=== PATIENT | male | born 1995 | race Hispanic/Latino ===

== ENCOUNTER 2017-09-15 16:23 | Emergency (ER) | payer OTHER ==
[2017-09-15 16:23] VITALS: BMI 53.8
[2017-09-15 16:32] VITALS: RESP 18; O2SAT 100
[2017-09-15] MEDS ORDERED: Sodium Chloride 0.9% 1,000 ML IV ONE (17:43)
[2017-09-15] MEDS ORDERED: Sodium Chloride 0.9% 1,000 ML ONE (17:48)
[2017-09-15 18:16] LABS: BASO % 0.3 % (0.0-2.0); EOS % 0.3 % (0.0-4.0); HEMATOCRIT 50.4 % (35.0-51.0); LYMPH # 0.8 K/uL (1.0-4.3); LYMPH % 8.9 % (20.0-40.0); MEAN CELL VOLUME 78.5 fL (80.0-94.0); MEAN CORPUSCULAR HEMOGLOBIN 25.2 pg (27.0-31.0); MEAN CORPUSCULAR HGB CONC 32.1 g/dL (33.0-37.0); MONO # 0.7 K/uL (0.0-0.8); MONO % 8.2 % (0.0-10.0); NRBC % 0.1 % (0.0-2.0); PLATELET COUNT 174 K/uL (130-400); RED CELL DISTRIBUTION WIDTH 13.2 % (11.5-14.5)
--- NOTE | 2017-09-15 18:36 | C.PDOC ---
History Of Present Illness 22 y/o male presents to ED with c/o abdominal cramping, nausea and 1 episode of vomiting, with multiple episodes of diarrhea since this morning. Patient also reports body aches. Denies any unusual food intake or sick contacts. Denies blood in the diarrhea, fever. Time Seen by Provider: 09/15/17 17:27 Chief Complaint (Nursing): Abdominal Pain History Per: Patient History/Exam Limitations: no limitations Current Symptoms Are (Timing): Still Present Severity: None Location Of Pain/Discomfort: Diffuse Radiation Of Pain To:: None Quality Of Discomfort: Cramping, "Pain" Associated Symptoms: Nausea, Vomiting, Diarrhea, Other (body aches). denies: Fever, Chills Recent travel outside of the [place]: No Past Medical History Reviewed: Historical Data, Nursing Documentation, Vital Signs Vital Signs: Last Vital Signs Temp 99.7 F H 09/15/17 19:25 Pulse 97 H 09/15/17 19:25 Resp 18 09/15/17 19:25 BP 120/76 09/15/17 19:25 Pulse Ox 100 09/15/17 19:25 - Medical History PMH: Sleep Apnea (MILD) - Social History Hx Alcohol Use: Yes Hx Substance Use: No - Immunization History Hx Tetanus Toxoid Vaccination: No Hx Influenza Vaccination: No Hx Pneumococcal Vaccination: No Review Of Systems Except As Marked, All Systems Reviewed And Found Negative. Constitutional: Positive for: Malaise. Negative for: Fever, Chills Cardiovascular: Negative for: Chest Pain, Palpitations Respiratory: Negative for: Cough, Shortness of Breath, Wheezing Gastrointestinal: Positive for: Nausea, Vomiting, Abdominal Pain (cramping), Diarrhea. Negative for: Constipation, Hematochezia Genitourinary: Negative for: Dysuria Skin: Negative for: Rash Neurological: Negative for: Dizziness Physical Exam - Physical Exam Appears: Non-toxic, No Acute Distress, Other (comfortable) Skin: Normal Color, Warm, Dry Head: Atraumatic, Normacephalic Oral Mucosa: Moist Chest: Symmetrical Cardiovascular: Rhythm Regular Respiratory: Normal Breath Sounds, No Rales, No Rhonchi, No Wheezing Gastrointestinal/Abdominal: Soft, No Tenderness, No Guarding, No Rebound Back: Normal Inspection Extremity: Normal ROM, Capillary Refill (< 2 sec.) Neurological/Psych: Oriented x3, Normal Speech, Normal Cognition ED Course And Treatment - Laboratory Results Result Diagrams: 09/15/17 17:57 09/15/17 17:57 O2 Sat by Pulse Oximetry: 100 (RA) Pulse Ox Interpretation: Normal Progress Note: Labs ordered and reviewed. Treated with Bentyl and IV fluids. Disposition Counseled Patient/Family Regarding: Studies Performed, Diagnosis, Need For Followup, Rx Given - Disposition Referrals: Tip Abreu MD [Medical Doctor] - Disposition: HOME/ ROUTINE Disposition Time: 19:45 Condition: STABLE Additional Instructions: FOLLOW UP WITH YOUR DOCTOR/CLINIC IN 1-2 DAYS USE MEDICATIONS NEEDED DRINK PLENTY OF CLEAR FLUIDS, AND ADVANCE TO A BLAND DIET SLOWLY RETURN TO ER IF SYMPTOMS WORSEN Prescriptions: Dicyclomine [Bentyl] 20 mg PO Q6 PRN #15 tab PRN Reason: ABDOMINAL CRAMPING Naproxen 375 mg PO BID PRN #20 tablet PRN Reason: pain Ondansetron [Zofran Odt] 4 mg PO Q8 PRN #15 odt PRN Reason: Nausea/Vomiting Instructions: Viral Syndrome (ED), Gastroenteritis (ED) Forms: [employer] (Angolan) Print Language: OCCITAN - POA Present On Arrival: None - Clinical Impression Clinical Impression: Viral gastroenteritis - Scribe Statement The provider has reviewed the documentation as recorded by the Scribe SM All medical record entries made by the Scribe were at my direction and personally dictated by me. I have reviewed the chart and agree that the record accurately reflects my personal performance of the history, physical exam, medical decision making, and the department course for this patient. I have also personally directed, reviewed, and agree with the discharge instructions and disposition.
[2017-09-15 18:45] LABS: ALB/GLOB RATIO 1.5 (1.0-2.1); ALKALINE PHOSPHATASE 61 U/L (38-126); ALT/SGPT 44 U/L (21-72); AST/SGOT 26 U/L (17-59); BILIRUBIN,TOTAL 1.8 mg/dL (0.2-1.3); BLOOD UREA NITROGEN 14 mg/dL (9-20); CALCIUM 8.7 mg/dl (8.6-10.4); CARBON DIOXIDE 29 mmol/L (22-30); CHLORIDE 100 mmol/L (98-107); GFR AFRICAN-AMERICAN > 60; GLUCOSE,RANDOM 88 mg/dL (75-110); POTASSIUM 4.2 mmol/L (3.6-5.2); SODIUM 139 mmol/L (132-148); TOTAL PROTEIN 7.5 g/dL (6.3-8.3)
[2017-09-15 19:25] VITALS: BP 120/76; PULSE 97; TEMP 99.7
[2017-09-15 19:41] LABS: NEUTROPHIL 93 % (50-75); TOTAL CELLS COUNTED 100
== END 2017-09-15 20:04 | disposition home or self-care (01) ==
LOC: C.ER 16:23
DX: A08.4 Viral intestinal infection, unspecified (principal)
CPT/HCPCS: 80053; 83690; 85025; 96361; 96374; 96375; 99284; J1885; J2405; J7040